=== PATIENT | male | born 1940 | race African-American/Black ===

== ENCOUNTER 2020-10-05 14:39 | Inpatient (IN) | payer OTHER ==
[~2020-10-05] VITALS: Ht 167.6 cm; Wt 71.8 kg
[2020-10-05 14:43] VITALS: BP 95/64
[2020-10-05 15:05] VITALS: BP 136/55
[2020-10-05 15:14] LABS: BASOPHILS 0.5 % (0.0-2.0); EOSINOPHILS 0.4 % (0.0-3.0); HEMOGLOBIN 20.2 gm/dL (14.0-18.0); LYMPHOCYTES 7.7 % (24.0-44.0); MCH 32.1 pg (26.0-34.0); MCHC 31.7 g/dL (28.0-37.0); MCV 101.3 fL (80.0-100.0); MONOCYTES 6.9 % (1.0-8.0); PLATELET COUNT 242 thou/uL (150-400); POLYS 84.5 % (36.0-66.0); RDW 15.5 % (10.5-14.5); WBC 13.1 thou/uL (4.0-11.0)
[2020-10-05 15:17] LABS: HEMATOCRIT 63.8 % (42.0-52.0)
[2020-10-05 15:20] LABS: BE(vivo) -0.8 mmol/L (-2 to +3); HCO3 24.9 mmol/L (22.0-26.0)
[2020-10-05 15:22] LABS: PO2 52.4 mmHg (80.0-100.0)
[2020-10-05 15:24] LABS: ALBUMIN 3.7 g/dL (3.4-5.0); CALCIUM 9.4 mg/dL (8.5-10.1); CREATININE 3.4 mg/dL (0.7-1.3); DIRECT BILIRUBIN 0.3 mg/dL (<0.1-0.2); POTASSIUM 4.7 mmol/L (3.5-5.1); TOTAL BILIRUBIN 1.2 mg/dL (0.2-1.0); TOTAL PROTEIN 8.7 g/dL (6.4-8.2)
[2020-10-05 15:32] LABS: HEMOGLOBIN 19.5 gm/dL (14.0-18.0)
[2020-10-05 15:33] LABS: HEMATOCRIT 61.2 % (42.0-52.0)
--- NOTE | 2020-10-05 15:37 | EKG ---
[facility] [place] [address] ELECTROCARDIOGRAM REPORT Name: MARÍA STANLEYARY Room #: PRE M.R.#: [id number] Admission: Attend Phys: Discharge: Date of : 40 Report #: [id number] THIS REPORT FOR: cc: Valentin Sahni MD [facility] ~ THIS REPORT FOR: //name// [facility] ED Test Date: 2020-10-05 Test Time: 14:59:21 Pat Name: LIS STANLEY Department: Room: Gender: M Altitude Chamber Technician: : 1940 Requested By: Jean Garrett Order Number: [id number] MD: Valentin Sahni Measurements Intervals [place] Rate: 143 P: 81 PA: 137 QRS: 39 QRSD: 79 T: 260 QT: 284 QTc: 438 Interpretive Statements SINUS TACHYCARDIA Repolarization abnormality, prob rate related No previous ECG available for comparison Electronically Signed On 10-05-2020 15:37:05 GRAVITY PROSPECTING OPERATOR HELPER by Valentin Sahni [email or web address] <ELECTRONICALLY SIGNED> By: Valentin Sahni MD, [facility] 10/05/20 1537 [id number] Valentin Sahni MD, FACC /EPI
[2020-10-05 16:37] LABS: URINE BILIRUBIN 1+ (Negative); URINE BLOOD TRACE (Negative); URINE CLARITY CLEAR; URINE COLOR YELLOW; URINE GLUCOSE-RANDOM* NEGATIVE (Negative); URINE KETONES TRACE (Negative); URINE LEUKOCYTES-REFLEX 1+ (Negative); URINE NITRITE-REFLEX NEGATIVE (Negative); URINE PROTEIN (DIPSTICK) NEGATIVE (Negative); URINE SPECIFIC GRAVITY 1.025 (1.005-1.035); URINE UROBILINOGEN 0.2 E.U./dl (0.2-1.0)
[2020-10-05 16:38] LABS: ICTOTEST (BILI CONFIRMATORY) Negative (Negative)
[2020-10-05 16:58] LABS: HYALINE CASTS 4-10 Moderate /LPF (None Seen); SQUAMOUS >10 Many /LPF (0-3)
[2020-10-05 17:00] LABS: BACTERIA-REFLEX >30 Many /HPF (None Seen); CRYSTALS None Seen /LPF (None Seen); URINE WBC-REFLEX >25 Many /HPF (0-5)
[2020-10-05 17:01] LABS: URINE RBC 0-2 Rare /HPF (0-2)
[2020-10-05] MEDS ORDERED: ASA81BEC (17:04)
[2020-10-05] MEDS ORDERED: SPIRONOLACTONE25 M1 (17:04)
[2020-10-05] MEDS ORDERED: DULCOLAX10 MG (17:05)
[2020-10-05] MEDS ORDERED: COZAAR 25 MG TA25 M1 (17:05)
[2020-10-05] MEDS ORDERED: FUROSEMIDE 20 M20 MG (17:06)
[2020-10-05] MEDS ORDERED: LEVO-T100 MCG ×2 (17:07→18:46)
[2020-10-05 17:21] VITALS: BP 107/72
[2020-10-05] MEDS ORDERED: LIPITOR 10 MG10 M1 (18:42)
[2020-10-05] MEDS ORDERED: MAGNESIUM250 M1 (18:42)
[2020-10-05] MEDS ORDERED: SENOKOT8.6 MG (18:43)
[2020-10-05] MEDS ORDERED: TYLENOL325 M1 (18:44)
[2020-10-05] MEDS ORDERED: LEVOXYL25 MCG (18:45)
[2020-10-06] VITALS (28 sets, daily range): BP systolic 83–108; BP diastolic 48–64
[2020-10-06 05:42] LABS: ABSOLUTE NEUTROPHILS 10.7 thou/uL (1.4-8.2); BASOPHILS 0.6 % (0.0-2.0); EOSINOPHILS 1.8 % (0.0-3.0); HEMATOCRIT 50.8 % (42.0-52.0); LYMPHOCYTES 8.6 % (24.0-44.0); MCH 31.8 pg (26.0-34.0); MCHC 31.4 g/dL (28.0-37.0); MCV 101.3 fL (80.0-100.0); MONOCYTES 6.7 % (1.0-8.0); POLYS 82.3 % (36.0-66.0); RBC 5.01 mil/uL (4.50-6.00); RDW 15.5 % (10.5-14.5)
[2020-10-06 05:56] LABS: ALBUMIN 2.4 g/dL (3.4-5.0); CALCIUM 7.9 mg/dL (8.5-10.1); CREATININE 2.5 mg/dL (0.7-1.3); MAGNESIUM 2.9 mg/dL (1.8-2.4); POTASSIUM 4.2 mmol/L (3.5-5.1); TOTAL BILIRUBIN 1.1 mg/dL (0.2-1.0)
[2020-10-06 06:03] LABS: HEMOGLOBIN 15.9 gm/dL (14.0-18.0); PLATELET COUNT 161 thou/uL (150-400)
[2020-10-06 08:27] LABS: BE(vivo) -2.1 mmol/L (-2 to +3); HCO3 24.9 mmol/L (22.0-26.0); PCO2 50.7 mmHg (35.0-45.0); PO2 60.3 mmHg (80.0-100.0); sO2 88.6 % (92.0-98.0)
[2020-10-06 08:27] LABS: APTT 31.3 Seconds (24.5-32.8); INR 1.2; PROTIME 11.8 Seconds (9.3-11.4)
[2020-10-06 08:28] LABS: pH 7.309 (7.360-7.450)
[2020-10-06 09:02] LABS: FIBRINOGEN 518.5 mg/dL (210-360)
[2020-10-06 12:22] LABS: CALCIUM 7.7 mg/dL (8.5-10.1); CREATININE 2.1 mg/dL (0.7-1.3); POTASSIUM 3.7 mmol/L (3.5-5.1)
--- NOTE | 2020-10-06 12:27 | NUR ---
VAT CONSULTED FOP A CL FOR THIS ER PT HEADING TO ICU FOR PRESSORS, 6FTL PLACED RT IJ. PLEASE SEE NI FOR DETAILS
--- NOTE | 2020-10-06 17:52 | NUR ---
PT ADMITTED FROM ED TO ROOM 244. PT PLACED ON BIPAP AND MONITORS. COTTON EMPTIED, IVF INFUSING.
[2020-10-07] VITALS (40 sets, daily range): BP systolic 85–109; BP diastolic 43–64
[2020-10-07 04:47] LABS: ABSOLUTE NEUTROPHILS 8.2 thou/uL (1.4-8.2); BASOPHILS 0.4 % (0.0-2.0); EOSINOPHILS 2.6 % (0.0-3.0); HEMATOCRIT 48.5 % (42.0-52.0); HEMOGLOBIN 15.3 gm/dL (14.0-18.0); LYMPHOCYTES 8.5 % (24.0-44.0); MCH 31.8 pg (26.0-34.0); MCHC 31.5 g/dL (28.0-37.0); MCV 100.8 fL (80.0-100.0); MONOCYTES 6.5 % (1.0-8.0); PLATELET COUNT 137 thou/uL (150-400); RBC 4.82 mil/uL (4.50-6.00); RDW 15.1 % (10.5-14.5)
[2020-10-07 04:53] LABS: CALCIUM 8.6 mg/dL (8.5-10.1); CREATININE 1.8 mg/dL (0.7-1.3); POTASSIUM 4.1 mmol/L (3.5-5.1)
--- NOTE | 2020-10-07 16:50 | NUR ---
ASSUMED CARE OF PT AT 0700, PT IS A GCS OF 11, HE DOES NOT SEEM TO BE IN ANY PAIN. VSS AND HAS BEEN AFIBRILE. DOBHOFF PLACED ABD TUBE FEEDS STARTED AND PT TOLERATES IT. PT WITH ORDERS TO XFER OUT OF ICU. [facility] CALLED AND GIVEN TO ACCEPTING NURSE.
--- NOTE | 2020-10-07 16:51 | NUR ---
REC REPORT/TRANSFER FROM ICU. PT ARRIVES WITH IVF AND TUBE FEED THROUGH RECENTLY PLACED DOBHOFF. DIAGNOSTICS SHOWS KINKED AND NEEDED TO BE WITHDRAWN AN UNMEASURABLE AMT, ASKED ICU NURSE AND SHE SAID DONE. PT ALSO SHOWS UP WITH LUE RESTRAINING MITT. WENT BACK TO ICU TO ASK. HE'S RECENTLY JUST STARTED PULLING ON THE DOBHOFF. PINNED TO TAPE AND HIS GOWN AND STARTED ALL FLUIDS AFTER RETRIEVING PUMPS FROM VARIOUS DEPARTMENTS AND TUBING FROM ICU. PT OPENS EYES BUT HASN'T SPOKEN, TURNED ON TELEVISION FOR HIM. WILL CONTINUE TO MONITOR AND FIND OUT WHICH PAPERWORK WE NEED FOR HIS MITTEN RESTRAINT AND WHAT TIME IT WOULD BE READY TO BE RENEWED, IF NOT ALREADY DONE
--- NOTE | 2020-10-07 17:08 | NUR ---
CALLED ICU BACK TO ASK ABOUT PAPERWORK/ORDERS FOR PT'S RESTRAINT. FABIAN, RN SAID SHE WAS IN THE MIDST OF ENTERING ORDERS, OUR SOC ANALYST ASKED THAT I CALL TO HAVE IT BROUGHT OVER ONCE DONE, FOR CHARTING PURPOSES. RADIO TIME SALESPERSON STATED SHE WOULD TUBE OVER.
[2020-10-08] VITALS (9 sets, daily range): BP systolic 86–99; BP diastolic 47–59
[2020-10-08 04:51] LABS: ABSOLUTE NEUTROPHILS 6.3 thou/uL (1.4-8.2); BASOPHILS 0.8 % (0.0-2.0); EOSINOPHILS 3.5 % (0.0-3.0); HEMATOCRIT 44.5 % (42.0-52.0); HEMOGLOBIN 14.2 gm/dL (14.0-18.0); LYMPHOCYTES 9.3 % (24.0-44.0); MCH 31.3 pg (26.0-34.0); MCHC 31.8 g/dL (28.0-37.0); MCV 98.5 fL (80.0-100.0); MONOCYTES 8.1 % (1.0-8.0); PLATELET COUNT 152 thou/uL (150-400); POLYS 78.3 % (36.0-66.0); RBC 4.52 mil/uL (4.50-6.00); RDW 14.4 % (10.5-14.5)
[2020-10-08 05:00] LABS: CALCIUM 8.3 mg/dL (8.5-10.1); CREATININE 1.5 mg/dL (0.7-1.3); POTASSIUM 3.3 mmol/L (3.5-5.1)
--- NOTE | 2020-10-08 05:04 | NUR ---
ASSESSMENTS CHARTED. MEDS GIVEN CHARTED. HAD XRAY REVIEWED BY NURSE PRACTICIONER AND ER DOCTOR, APPROVAL WAS GIVEN TO USE DOBHOFF. TUBE FEEDING RESTARTED AT 20 MLS/HR, GOAL IS 60. MITTEN IN PLACE ON LEFT HAND TO PREVENT DISLODGEMENT OF DOBHOFF AND IV. FALL PRECAUTIONS IN PLACE DURING SHIFT.
--- NOTE | 2020-10-08 05:07 | HC ---
[facility] [place] [address] CONSULTATION Name: LIS STANLEY Room #: 215-P ADM IN M.R.#: [id number] Admission: 10/05/20 Attend Phys: Mumtaz Urbina MD Discharge: Date of : 40 Report #: [id number] THIS REPORT FOR: cc: Nikolai Osman MD, Srinath MD Barry,Ramses Schwartz MD ~ DATE OF SERVICE: 10/06/2020 INFECTIOUS DISEASE CONSULTATION ATTENDING PHYSICIAN: Dr. Urbina REASON FOR EVALUATION: Febrile illness, likely has complicated urinary tract infection. The patient with extensive medical history including previous stroke with sequelae of right-sided paralysis. HISTORY OF PRESENT ILLNESS: Chart reviewed, patient examined. This is an 80-year-old who lives in a facility, who was noted to have fever and was found to be hypotensive as well with systolic pressures in the 70s. Due to concern about his worsening situation, he was brought to the Emergency Room. He was resuscitated and did not require pressor support; however, currently he is requiring some oxygen per BiPAP with FiO2 of 0.4. He was noted to have fevers prior to admission; however, he has not been febrile since. Urinalysis did show mhjlehsn-oz-xftmyn pyuria. Urine culture with growth of yeast, Escherichia coli. Had 3 negative COVID tests. He is essentially at baseline, nonverbal and he is not really responsive at all at this point. He was empirically started on Zosyn. ALLERGIES: None known. CURRENT MEDICINES: Includes enoxaparin, vancomycin, levothyroxine, famotidine, aspirin, Zosyn. PAST MEDICAL HISTORY: History of previous stroke with right-sided paralysis, history of hypertension, hypothyroidism, hyperlipidemia, iron deficiency anemia. SOCIAL HISTORY: Disabled. Unknown smoking history. FAMILY HISTORY: Noncontributory. REVIEW OF SYSTEMS: Not obtainable. PHYSICAL EXAMINATION: GENERAL: He appears chronically ill, undernourished. He is in mild to moderate [address] [address] CONSULTATION Name: LIZETHLIS Room #: 215-P [facility] IN [facility].#: [id number] Admission: 10/05/20 Attend Phys: Mumtaz Urbina MD Discharge: Date of : 40 Report #: [id number] distress. He is lying supine, BiPAP in place. He is not arousable at this point, appears undernourished. VITAL SIGNS: Temperature 98.6, pulse 72, respirations 11. Blood pressure 102/61, saturations 99%. SKIN: Warm, dry, no rashes. HEENT: ____. NECK: Appears to be supple. LUNGS: Few scattered coarse breath sounds. HEART: Regular. I do not appreciate a murmur. ABDOMEN: Soft, mildly distended. There are no overt peritoneal signs. GENITOURINARY AND RECTAL: Deferred. LABORATORY DATA: Electrolytes: Sodium 162 that is down from 167 on admission, potassium 3.7, chloride 126, bicarb is 26, anion gap of 10. BUN and creatinine 51 and 2.1 that has improved from 3.4 on admission. Glucose of 93. Estimated GFR of 37. Coronavirus testing was negative. Blood cultures are sterile thus far. Chest x-ray showed right mid lung and bibasilar infiltrates without effusion. Urine culture with growth of greater than 10 ____ Escherichia coli. Procalcitonin 0.14. ABGs; pH 7.309, pO2 of 50.7, pO2 of 60.3 and that was on 4 liters. Liver function tests unremarkable. Albumin of 2.4, total protein of 6.0. Influenza antigen was negative. Initial lactic acid was 3.0. ASSESSMENT: Febrile illness. The patient with profound disability at baseline, certainly suggests complicating infection, likely genitourinary tract. ____ entirely exclude pneumonitis, probably on the basis of aspiration. It is not clear how well he eats. We will continue a combination of therapy including both gram-positive and gram-negative coverage at this point. He is certainly critically ill and may well worsen before he improves. Continue to monitor expectantly. Overall, his prognosis appears guarded. <ELECTRONICALLY SIGNED> By: Ramses Barlow MD 10/08/20 0507 [id number] Ramses Barlow MD /nt
--- NOTE | 2020-10-08 18:56 | NUR ---
PT CARE ASSUMED AT 0700. ASSESSMENTS CHARTED. MEDICATION CHARTED. RIJ 3L. RAC IV. NORMAL SINUS RHYTHM. DOBHOFF AT 55; VITAL AF AT 50. Q2 TURNS. PT IS FLACCID ON THE RT SIDE; RT HAND CONTRACTURE. MITTEN RESTRAINT ON LT HAND. RENEWED AT [address] DIAZ.
[2020-10-09 04:45] VITALS: BP 114/60
[2020-10-09 06:42] LABS: CALCIUM 7.5 mg/dL (8.5-10.1); CREATININE 1.5 mg/dL (0.7-1.3); POTASSIUM 3.2 mmol/L (3.5-5.1)
--- NOTE | 2020-10-09 07:31 | NUR ---
ASSUME CARE 1900. PT/VITALS STABLE. UNABLE TO VOICE CONCERNS. PT APPEARS TO RESPOND TO TOUCH AND SOMETIMES VERBAL STIMULI BUT IT'S HARD TO DETERMINE LOC FOR THIS PT. DOBHOFF NOTED IN RIGHT NARES WITH TUBE FEEDING GOING AT 60ML GOAL RATE. PT TOLERATING WELL WITH NO RESIDUALS NOTED. NO SKIN ISSUES. RIGHT ARM ELEVATED ON PILLOW TO HELP WITYH SWELLING. SR ON MONITOR. K LOW. ASSESSMENT CHARTED. PROGRESSING SLOWLY WITH POC. PLAN IS TO CONTINEU WITH ABX THERAPY/MONITOR LEVEL OF CONCIOUSNESS/NUTRITION AND ELECTROLYTES. WILL CONTINUE TO MONITOR AND FOLLOW WITH POC
[2020-10-09 08:10] VITALS: BP 98/52
--- NOTE | 2020-10-09 09:14 | NUR ---
WOUND CONSULT; A LOW DEANNA ASSESSMENT WAS REQUESTED YESTERDAY. YESTERDAY THE PATIENT WAS INTUBATED AND HAS SINCE PRUDENCE EXTUBATED. THE PATIENT IS UP IN A CHAIR EATING A REGULAR DIET. THE RN TODAY STATES THAT THERE ARE NO WOUNDS OR ISSUES AND A WOUND CONSULTED IS NO LONGER NEEDED. WOUND CARE WILL SIGN OFF.
--- NOTE | 2020-10-09 11:43 | NUR ---
Case opened to follow for dc planning. 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 He admitted with respiratory distress and was covid neg x 2. Pt is currently in CCU and the attending is reaching out to the pt's two sons, Josefa and Heidi olmstead, to discuss code status and plan of care. Pt was a full code at the half-way. Per the half-way staff he is total care due to hx of cva and non verbal. [place] admissions coord to fax any DPOA or AD documents. They are holding his bed. DC program planner to fax them a clinical updated. Cm role introduced to pt's son Heidi olmstead via phone and their contact info was provided to the attending. Heidi notes both he and his brother are pt's dpoa and normally make any care decisions together. Will follow.
[2020-10-09 11:50] VITALS: BP 96/63
--- NOTE | 2020-10-09 15:44 | NUR ---
PT IS FROM [facility] FAXED CLINICAL UPDATE TO FACILITY RECEIVED CONFIRMATION AND LEFT MSG WITH HANY IN ADM.
[2020-10-09 15:50] VITALS: BP 100/64
[2020-10-09 20:15] VITALS: BP 102/67
[2020-10-10] VITALS (8 sets, daily range): BP systolic 97–109; BP diastolic 61–72
--- NOTE | 2020-10-10 08:02 | NUR ---
OPENS EYES.NONVERBAL,CONTRACTED RIGHT ARM,TURN Q2 HOURS,VITAL AF AT 60 ML/HR TO DOBHOFF.BM X 1.POC CONTINUED.
--- NOTE | 2020-10-10 13:29 | NUR ---
FAXED CLINICAL UPDATE TO [facility] SPOKE WITH HANY IN ADM SHE RECEIVED UPDATE.
--- NOTE | 2020-10-10 20:16 | NUR ---
PT CARE ASSUMED AT 0700. ASSESSMENT CHARTED. MEDICATION CHARTED. RAC IV. RIJ 3L. DOBHOFF AT 55 LT NARE; TUBE FEEDING VITAL AF 1.2 AT 60. SINUS RHYTHM. CAPABLE OF SWALLOWING HONEY THICK AND PUREED; SLOWLY. RT SIDE FLACCID; RT HAND CONTRACTED. YURY.
[2020-10-11 04:45] VITALS: BP 104/67
[2020-10-11 07:45] VITALS: BP 102/60
--- NOTE | 2020-10-11 07:52 | NUR ---
ASSUMED CARE 1900. PT NONVERBAL. FOLLOWS COME COMMANDS. ABLE TO MOVE LEFT SIDE BUT RIGHT SIDE FLACCID. RIGHT ARM EDEMA. GRIMACES IN PAIN WHEN ARM IS MOVED, OTHERWISE NO APPARENT PAIN. SR ON THE MONITOR. NO OTHER EVENTS. WILL CONTINUE TO FOLLOW POC
--- NOTE | 2020-10-11 11:27 | NUR ---
Case discussed with the care team. Pt will need 5 more doses of IV atb. ID notes faxed to admissions at [facility] to see if they can skill him for iv atb. Pt is now a DNR per the attending discussion with pt's sons yesterday. Will follow.
[2020-10-11 11:30] VITALS: BP 113/67
[2020-10-11 13:40] VITALS: BP 118/71
[2020-10-11 15:32] VITALS: BP 122/64
[2020-10-11 16:05] LABS: ABSOLUTE NEUTROPHILS 4.5 thou/uL (1.4-8.2); BASOPHILS 0.6 % (0.0-2.0); EOSINOPHILS 2.7 % (0.0-3.0); HEMOGLOBIN 13.9 gm/dL (14.0-18.0); LYMPHOCYTES 16.3 % (24.0-44.0); MCH 31.7 pg (26.0-34.0); MCHC 33.1 g/dL (28.0-37.0); MONOCYTES 10.5 % (1.0-8.0); PLATELET COUNT 173 thou/uL (150-400); POLYS 69.9 % (36.0-66.0); RBC 4.38 mil/uL (4.50-6.00); RDW 14.2 % (10.5-14.5); WBC 6.5 thou/uL (4.0-11.0)
[2020-10-11 16:16] LABS: POTASSIUM 3.7 mmol/L (3.5-5.1)
[2020-10-11 16:28] LABS: ALBUMIN 1.8 g/dL (3.4-5.0); CALCIUM 7.4 mg/dL (8.5-10.1); MAGNESIUM 1.6 mg/dL (1.8-2.4); TOTAL BILIRUBIN 0.2 mg/dL (0.2-1.0); TOTAL PROTEIN 4.4 g/dL (6.4-8.2)
--- NOTE | 2020-10-11 20:20 | NUR ---
REceived from [facility] [place], Q2 tunrs done. initially had a dobhoff that pt removed on his own. INformed MD was advised to keep it off. Cpk7ibr diet and thickened liquids are tolerated well. Pt is a total care, non verbal but responds with mopvements of heads. POC follolwed with no signs of distres noted. Endorsed to the night nurse.
[2020-10-11 20:36] VITALS: BP 103/63
--- NOTE | 2020-10-12 06:31 | NUR ---
VSS-AFEBRILE. RESTED WELL THROUGH NIGHT WITH FEW NEEDS. GOOD ORAL INTAKE, OFFERED FLUIDS AND TURNED EVERY TWO HOURS FOR COMFORT. LARGE SOFT BM THIS SHIFT, SKIN INTACT. FALL PRECAUTIONS IN PLACE.
[2020-10-12 07:01] VITALS: BP 103/68
[2020-10-12 16:12] VITALS: BP 107/72
--- NOTE | 2020-10-12 18:02 | NUR ---
ASSUMED CARE OF PATIENT AT APPROX. 0730. ASSESSMENT CHARTED. MEDS GIVEN PER JAN. VSS. PATIENT IS A STROKE PATIENT W R SIDED WEAKNESS. IS REPOSITIONED EVERY TWO HOURS WITH PILLOWS. PATIENT HAS A COTTON, DRAINING AND INTACT W NO ISSUES. PATIENT GOT A BED BATH TODAY. NYSTATIN CREAM ORDERED FOR HX. OF YEAST INFECTION. PATIENT IS A FEEDER. EATS WELL. SON IS AT BEDSIDE. WILL CONTINE TO MONITOR AND FOLLOW PLAN OF CARE
--- NOTE | 2020-10-12 20:09 | NUR ---
I AGREE WITH NURSING ASSESSMENT AND NURSING NOTE DONE BY KUSUM/LOGGING SUPERVISOR.
[2020-10-13 13:56] VITALS: BP 112/61
[2020-10-13 13:58] VITALS: BP 99/61
--- NOTE | 2020-10-13 15:34 | NUR ---
CM SPOKE WITH ADMISSIONS AT [facility] THIS DAY AND SHE INDICATED THAT SHE THOUGH [facility] HAD NOTIFIED CM THAT THEY WOULD PREFER PT TO FINISH 10 DAY COURSE OF ABX HERE DUE TO COST. CM INDICATED THAT HADN'T BEEN CONVEYED. CM SPOKE WITH HOSPITALIST AND HE INDICATED THAT HE AND ID WOULD PREFER PT TO REMAIN IN HOUSE TO FINISH OUT 10 DAY COURSE OF IV ABX. ANTICIPATE PT RETURNING TO [facility] ONCE FINISHED WITH IV ABX LIKELY FRIDAY. CM TO FOLLOW INDICATED WITH DC PLANNING.
--- NOTE | 2020-10-13 16:20 | NUR ---
ASSUMED CARE OF PATIENT AT SHIFT CHANGE. ASSESSMENT CHARTED. MEDS GIVEN GIVEN PER MAR. VSS. PATIENT IS NONVERBAL AND ON BEDREST D/T PAST CVA. REPOSITIONED OFTEN W NO ISSUES. PATIENT IS DEPENDENT WITH BEING FED AND TOLERATES WELL EATING MOST OF MEAL. COTTON INTACT; BED BATH AND DANUTA-CARE/COTTON CARE COMPLETE TODAY. PLAN IS TO D/C FRIDAY BACK TO [facility]. DOES NOT APPEAR IN ANY DISTRESS. WILL CONTINUE TO MONITOR AND FOLLOW PLAN OF CARE
[2020-10-14 07:55] VITALS: BP 115/58
[2020-10-14 12:15] LABS: HEMOGLOBIN 13.7 gm/dL (14.0-18.0); MCH 31.4 pg (26.0-34.0); MCHC 32.6 g/dL (28.0-37.0); MCV 96.1 fL (80.0-100.0); PLATELET COUNT 225 thou/uL (150-400); RBC 4.37 mil/uL (4.50-6.00); RDW 14.1 % (10.5-14.5); WBC 6.1 thou/uL (4.0-11.0)
[2020-10-14 12:25] LABS: ALBUMIN 1.7 g/dL (3.4-5.0); CALCIUM 7.6 mg/dL (8.5-10.1); MAGNESIUM 1.6 mg/dL (1.8-2.4); POTASSIUM 3.7 mmol/L (3.5-5.1); TOTAL BILIRUBIN 0.3 mg/dL (0.2-1.0); TOTAL PROTEIN 4.8 g/dL (6.4-8.2)
[2020-10-14 12:48] LABS: ABSOLUTE NEUTROPHILS 3.9 thou/uL (1.4-8.2); PLATELET ESTIMATE NORMAL
--- NOTE | 2020-10-14 14:51 | NUR ---
ASSUMED PT CARE THIS AM. PT VSS, ALERT BUT NONVERBAL. IV PATENT, FLUIDS INFUSING. PT TURNED Q2H. LABS DRAWN, MG LEVEL LOW SO ELECTROLYTE REPLACEMENT ORDERS IN PLACE. PO MG GIVEN. PT EATS WITH ASSISTANCE, EATS WELL. THICKENED LIQUIDS ENCOURAGED. COTTON PATENT. MG TO BE RECHECKED AFTER FOUR HOURS OF GIVING MG.
[2020-10-14 16:06] VITALS: BP 109/50
[2020-10-14 19:24] VITALS: BP 98/40
[2020-10-14 21:28] VITALS: BP 106/48
--- NOTE | 2020-10-15 05:49 | NUR ---
Assumed pt care at 1900. Alert to self only,answering to Yes/No questions and able to feed himself juice with staff observation. Denied pain on assessment. VSS. Repositioned every 2 hrs as tolorated. Sanchez patent to DD with yellow urine noted. RIJ in place and patent infusing fluids/abts w/o problems. Edema persists on RUE/RLE,elevated on pillows. Fall precautions in place,will continue to monitor pt.
[2020-10-15 07:37] VITALS: BP 106/63
[2020-10-15 09:39] LABS: HEMOGLOBIN 13.3 gm/dL (14.0-18.0); MCH 31.7 pg (26.0-34.0); MCHC 33.3 g/dL (28.0-37.0); PLATELET COUNT 210 thou/uL (150-400); RBC 4.21 mil/uL (4.50-6.00); RDW 14.2 % (10.5-14.5); WBC 4.9 thou/uL (4.0-11.0)
[2020-10-15 09:51] LABS: CALCIUM 7.8 mg/dL (8.5-10.1); CREATININE 1.1 mg/dL (0.7-1.3); MAGNESIUM 1.6 mg/dL (1.8-2.4); PHOSPHORUS 2.3 mg/dL (2.5-4.9); POTASSIUM 3.5 mmol/L (3.5-5.1)
[2020-10-15 10:09] LABS: ABSOLUTE NEUTROPHILS 3.2 thou/uL (1.4-8.2); ATYPICAL LYMPHS 3 %; PLATELET ESTIMATE NORMAL
--- NOTE | 2020-10-15 14:52 | NUR ---
ASSUMED PT CARE THIS AM. PT VSS, ALERT BUT NONVERBAL. PT SHOWS NO SIGNS OF BEING IN PAIN. CENTRAL LINE PATENT, GOOD BLOOD RETURN. EDEMA OF THE LEFT ARM AND BOTH FEET. DR ORDERED A DOPPLER FOR EDEMA. FLUIDS INFUSING WELL. PT HAS GOOD APPETITE. COTTON CATHETER PATENT. MEDS TAKEN IN PUDDING.
[2020-10-15 17:11] VITALS: BP 100/53
[2020-10-16 07:37] VITALS: BP 106/63
[2020-10-16 09:38] LABS: HEMATOCRIT 41.1 % (42.0-52.0); HEMOGLOBIN 13.4 gm/dL (14.0-18.0); MCH 31.5 pg (26.0-34.0); MCHC 32.7 g/dL (28.0-37.0); MCV 96.3 fL (80.0-100.0); PLATELET COUNT 220 thou/uL (150-400); RBC 4.27 mil/uL (4.50-6.00); WBC 4.7 thou/uL (4.0-11.0)
[2020-10-16 09:54] LABS: ALBUMIN 1.8 g/dL (3.4-5.0); CALCIUM 7.9 mg/dL (8.5-10.1); POTASSIUM 3.8 mmol/L (3.5-5.1); TOTAL BILIRUBIN 0.3 mg/dL (0.2-1.0); TOTAL PROTEIN 4.7 g/dL (6.4-8.2)
[2020-10-16] MEDS ORDERED: NYSTATIN-TRIAMC15 GM TOP (11:02)
[2020-10-16 11:24] LABS: ABSOLUTE NEUTROPHILS 2.6 thou/uL (1.4-8.2); ATYPICAL LYMPHS 6 %; LARGE PLATELETS OCCASIONAL
--- NOTE | 2020-10-16 12:33 | NUR ---
Received awake on bed. Due medications given as prescribed, crushed and mixed with pudding. On room air. Vital signs stable. Assisted in ADLs. On pureed diet + honey thick consistency; assisted and encouraged every meal time; no nausea, no vomiting and no abdominal pain noted. With alvarez in place- drainining well; output measured and recorded accordingly; judie care done. With R EJ in place- dressing C/D/I; with 1/2NS at 50cc/hr, infusing well. Falls bundle in place. Turned on his sides every 2 hours. To continue monitoring patient. Pt seen and examined by Dr Concepcion this AM, pt to be re evaluated by PT/OT/ST- CM informed; covid swab ordered, done and sent to lab as per protocol. Discharge orders made by Dr Concepcion- a/w MCKENZIE input re: discharge dispostion and referrals.
--- NOTE | 2020-10-16 14:26 | NUR ---
CARE TEAM INDICATED THAT PT IS MEDICALLY STABLE TO DISHCARGE BACK TO [facility] THIS DAY. CM CALLED AND NOTIFIED ADMISSIONS AT FACILITY AND THEY HAVE TENTATIVELY SCHEDULED [facility] AND SUPPORT CENTER AGENT BETWEEN [id number]. COVID TEST STILL PENDING. CM CALLED TO NOTIFY PT'S SONS. MCKENZIE LEVT FOR [facility]. CM SPOKE WITH GEOVANNY TYSON AND HE INDICATED THAT THEY WANTED X-RAYS DONE RELATED TO BBRUISES ON PT'S BACK. CM NOTIFIED PHYSICIAN AND NURSE NOTIFIED HER WELL. CM PROVIDED HER WITH SON'S PHONE NUMBER. STILL WAITING ON RESPONSE. CM FAXED ORDERS. CM TO PROVIDE NURSE NUMBER FOR REPORT. CM TO FOLLOW INDICATED WITH DC PLANNING.
[2020-10-16 14:44] VITALS: BP 106/63
[2020-10-16 16:50] VITALS: BP 103/58
[2020-10-16 21:24] VITALS: BP 135/69
--- NOTE | 2020-10-17 02:27 | NUR ---
Assumed pt care at 1900. A/O to self only,unable to communicate d/t CVA but smiles when spoken to. Pt fed dinner at HS and consumed 100%. VSS. Incontinent of Bowels,alvarez patent to DD with yellow urine noted. Reposioned Q2 hrs as tolorated. Old bruising noted on Right upper back. RIJ in place,patent with NS infusing w/o any problems. Fall precautions in place, resting quietly w/o any distress noted at this time. Will continue to monitor pt.
[2020-10-17 10:32] VITALS: BP 122/71
--- NOTE | 2020-10-17 10:47 | NUR ---
Received awake on bed. Due medications given as prescribed, crushed and mixed with apple sauce. On room air. Vital signs stable. On MS, not on telemetry; no complains and signs of chest pain, crushing sensation and heaviness. On pureed, honey thick fluids; assisted and encouraged in eating and drinking; swallowing precautions observed; no nausea, no vomiting and no abdominal pain noted. Assisted in ADLs. Falls bundle in place. Pt turned regularly on his sides. With 3 lumen R IJ cath, 1/2NS infusing at 50cc/hr; dressing C/D/I. With L arm edema- kept elevated. Pt turned regularly on his sides. With alvarez in place- catheter care done; noted that pt has swelling on his scrotum- Dr Concepcion informed and shown to her during her rounds. CM still a/w physician's advise and decision re: discharge. With neuro consult from last night- US called in consult today, a/w physician's rounds. With orders for xray- to bring pt down via bed; a/w call from radiology once pt can be brought. Pt seen and examined by Dr Concepcion this AM, shown to her pt's bruise; pt to still discharge today once neuro sees pt; to still have xray done; to keep alvarez in place due to retention, pt to follow up with urology as o/p- CM updated. To continue monitoring patient.
[2020-10-17 11:01] VITALS: BP 122/74
[2020-10-17] MEDS ORDERED: PLAVIX 75 MG TA75 MG PO (11:55)
[2020-10-17] MEDS ORDERED: KEPPRA XR500 MG PO (11:55)
--- NOTE | 2020-10-17 13:11 | NUR ---
PT DISCHARGING TODAY BACK TO [facility] FOR SKILLED STAY FAXED DC ORDERS/SUMMARY TO FACILITY SPOKE WITH HANY IN ADM SHE RECEIVED ORDERS AND ARRANGED TRANSPORT BY [facility] FOR [id number] TODAY. SPOKE WITH PT'S SON (LIS TERAN) DC AND TIME OF TRANSPORT. UNIT NOTIFIED AND CHART COPY PER US. RN TO CALL REPORT TO [phone].
--- NOTE | 2020-10-17 13:45 | NUR ---
NEURO SAW PT AND PT HAD XRAY COMPLETED THIS DAY. NO FURTHER WORK UP INDICATED. PHYSICIAN INDICATED THAT PT IS MEDICALLY STABLE TO DISCHARGE HOME BACK TO [facility] THIS DAY. [facility]SPORT ARRANGED BETWEEN [id number]. PT'S SON LIS WAS NOTIFIED AND IS UNDERSTANDING AND AGREEABLE. ORDERS FAXED. REPORT CALLED BY NURSE. NO OTHER CM INTERVENTION INDICATED. CASE CLOSED.
== END 2020-10-17 15:29 | DRG 871 ==
LOC: ER 14:39 → EROBS 16:23 → 2N 16:23 → ICU 10-06 17:15 → 2N 10-07 16:22 → 4W 10-11 12:08
PROVIDERS: Emergency Medicine; Internal Medicine; ADMIT Internal Medicine; ATTEND Internal Medicine
PROC: 5A09357 Assistance with Respiratory Ventilation, Less than 24 Consecutive Hours, Continuous Positive Airway Pressure (ICD-10-PCS; principal; 2020-10-06)
PROC: 02HV33Z Insertion of Infusion Device into Superior Vena Cava, Percutaneous Approach (ICD-10-PCS; principal; 2020-10-06)
DX: A41.51 Sepsis due to Escherichia coli [E. coli] (principal); G92 Toxic encephalopathy; J18.9 Pneumonia, unspecified organism; E43 Unspecified severe protein-calorie malnutrition; R65.21 Severe sepsis with septic shock; J96.01 Acute respiratory failure with hypoxia; N17.9 Acute kidney failure, unspecified; E87.0 Hyperosmolality and hypernatremia; N39.0 Urinary tract infection, site not specified; Z16.12 Extended spectrum beta lactamase (ESBL) resistance; I69.354 Hemiplegia and hemiparesis following cerebral infarction affecting left non-dominant side; R53.81 Other malaise; Y95 Nosocomial condition; Z20.828 Contact with and (suspected) exposure to other viral communicable diseases; E03.9 Hypothyroidism, unspecified; E78.5 Hyperlipidemia, unspecified; I10 Essential (primary) hypertension; D75.1 Secondary polycythemia; E86.0 Dehydration; R13.10 Dysphagia, unspecified; Z66 Do not resuscitate; E83.42 Hypomagnesemia; B96.20 Unspecified Escherichia coli [E. coli] as the cause of diseases classified elsewhere; E88.09 Other disorders of plasma-protein metabolism, not elsewhere classified; D64.9 Anemia, unspecified; I95.9 Hypotension, unspecified; Z79.82 Long term (current) use of aspirin; Z79.899 Other long term (current) drug therapy; Z99.3 Dependence on wheelchair; Z68.25 Body mass index [BMI] 25.0-25.9, adult
CPT/HCPCS: 10047; 10081; 10203